=== PATIENT | female | born 1995 | race Caucasian/White ===

== ENCOUNTER 2021-10-22 15:37 | Emergency (ER) | payer MEDICAID, SELFPAY ==
[2021-10-22 15:37] VITALS: BP 133/95; PULSE 117; RESP 22; TEMP 36.6; O2SAT 98; BMI 41.4
--- NOTE | 2021-10-22 15:49 | EKG12_ITS ---
Test Reason : SOB Blood Pressure : / mmHG Vent. Rate : 113 BPM Atrial Rate : 113 BPM P-R Int : 136 ms QRS Dur : 080 ms QT Int : 318 ms P-R-T Axes : 054 056 017 degrees QTc Int : 436 ms Sinus tachycardia nonspecific T wave abnormality Confirmed by MERCED LONGO, RICARDO ([id number]), editor city SULEIMAN MADDOX ([id number]) on 10/25/2021 11:29:20 AM Referred By: ROBINSON Confirmed By:RICARDO BLACKWOOD MD
[2021-10-22] MEDS: Ipratropium/Albuterol Sulfate 3 ML AMPUL.NEB INHALATION (16:01)
[2021-10-22 16:02] VITALS: RESP 18
--- NOTE | 2021-10-22 16:03 | EDS_ITS ---
HPI History of Present Illness Chief Complaint: Shortness of Breath Informant: patient Onset/Context/Timing Onset: Days Context: Gradual Onset Current Severity: Mild Maximum Severity: Moderate Narrative Narrative: Patient presents with shortness of breath and chest pain x 2 days. Mild cough with sputum production noted. Patient believes she either pulled a muscle or has pneumonia. No fever or chills. No DVT or PE risk factors. [facility] Medical History Asthma Diabetes High cholesterol Home Medications prednisone 40 mg PO DAILY #6 tab 10/22/21 [Rx Last Taken Unknown] Allergy/AdvReac Type Severity Reaction Status Date / Time No Known Allergies Allergy Verified 10/22/21 15:41 Social History (Updated 10/22/21 @ 16:[address] Madalyn Calderon MD) Smoking Status: Current every day smoker tobacco type: cigarettes ROS ROS ED Constitutional Constitutional ED: Denies chills or fever(s) Eyes Eyes: Denies change in vision ENT ENT ED: Denies sore throat Cardiovascular Cardiovascular: Reports chest pain Respiratory/Chest Respiratory/Chest: Reports cough, dyspnea and sputum Gastrointestinal Gastrointestinal: Denies abdominal pain, nausea or vomiting Genitourinary Genitourinary ED: Denies dysuria Musculoskeletal Musculoskeletal: Reports back pain Integumentary Denies rash Neurologic Neurologic: Denies headache(s) or weakness Allergic/Immunologic Allergic/Immunologic ED: Denies urticaria EXAM Physical Exam Const Vital Signs: 10/22/21 15:37 10/22/21 16:02 10/22/21 16:22 Temperature 97.8 F Temperature Source Oral Pulse Rate 117 H Respiratory Rate 22 H 18 Respiratory Effort Short of Breath Respiratory Depth Normal Respiratory Pattern Tachypnea Blood Pressure 133/95 H Blood Pressure Mean 107 Pulse Ox 98 Oxygen Delivery Method Room Air Positive well nourished and well developed General Appearance ED: well developed HEENT Reports moist mucous membranes Eyes PERRL and EOMs intact bilaterally Neck no lymphadenopathy and supple Chest Wall inspection of chest normal and palpation of chest normal Resp normal respiratory effort Auscultation: diminished lung sounds Cardio regular rate and regular rhythm GI non-tender Palpation: soft Extremity normal to inspection Neuro oriented x3 and no sensory deficits noted Sensorium / Orientation: alert Motor Exam: strength 5/5 throughout Psych mental status grossly normal Skin no rashes or lesions noted MDM MDM MDM Narrative Medical decision making narrative: Patient given a DuoNeb treatment. Chest x- ray, EKG, lab work obtained. Lab Data Attestation: I reviewed the patient's lab results. Labs: Laboratory Results - last 24 hr 10/22/21 10/22/21 10/22/21 16:18 16:18 16:18 WBC 14.0 H RBC 5.17 Hgb 14.3 Hct 42.3 MCV 81.8 MCH 27.7 MCHC 33.8 RDW Std Deviation 43.0 RDW Coeff of Lalo 14.5 Plt Count 246 MPV 11.1 Immature Gran % (Auto) 0.500 Neut % (Auto) 69.3 Lymph % (Auto) 23.2 [place] % (Auto) 4.7 Eos % (Auto) 1.9 Baso % (Auto) 0.4 Absolute Neuts (auto) 9.7 H Absolute Lymphs (auto) 3.25 Nucleated RBC % 0 D-Dimer Quant (PE/DVT) < 0.27 L Sodium 136 Potassium 4.1 Chloride 106 Carbon Dioxide 23.0 Anion Gap 7 BUN 13 Creatinine 0.82 Estim Creat Clear Calc 85.25 Est GFR (MDRD) Af Amer 108 Est GFR (MDRD) Non-Af 89 BUN/Creatinine Ratio 15.9 Glucose 208 H Calcium 9.6 Troponin I High Sens < 3 L Serum , Qual 10/22/21 16:18 WBC RBC Hgb Hct MCV MCH MCHC RDW Std Deviation RDW Coeff of Lalo Plt Count MPV Immature Gran % (Auto) Neut % (Auto) Lymph % (Auto) [place] % (Auto) Eos % (Auto) Baso % (Auto) Absolute Neuts (auto) Absolute Lymphs (auto) Nucleated RBC % D-Dimer Quant (PE/DVT) Sodium Potassium Chloride Carbon Dioxide Anion Gap BUN Creatinine Estim Creat Clear Calc Est GFR (MDRD) Af Amer Est GFR (MDRD) Non-Af BUN/Creatinine Ratio Glucose Calcium Troponin I High Sens Serum , Qual NEGATIVE Radiography Chest X-Ray - ED: 2 View, Read by ED Physician, Normal, Heart, Lungs, Mediastinum and No Infiltrates Diagnostic Testing: Clinical Impression(s) from Imaging Studies Chest X-Ray 10/22/21 16:25 IMPRESSION: No acute radiographic abnormalities. Electronically Signed: Rolando Soria MD at 16:57 EDT , EKG Initial EKG: Attestation: I personally reviewed and interpreted this EKG as follows: Interpretation: Sinus Rhythm and Sinus Tachycardia (Sinus tach at 113. No acute ischemia.) Treatment and Re-Evaluation Narrative: On repeat evaluation patient does feel that her breathing is improved. Lab work reviewed with her and unremarkable. D-dimer is negative. Chest x-ray reveals no focal infiltrate per my interpretation as well as radiologist. I advised patient I believe she has a viral upper respiratory infection causing a slight asthma flare. [facility] She will be given a total of 4 days of prednisone. She was counseled on elevation of her blood sugar with steroids which will return to normal when she completes the course. She voices understanding and agreement. Discharge Plan Triage Chief Complaint: Shortness of Breath ED Provider: Madalyn Calderon Dx/Rx/DC Orders Clinical Impression: Viral URI, Asthma exacerbation Instructions: ED Asthma, Acute (Adult), ED URI, Viral, No Abx (Adult) Prescriptions: New prednisone 20 mg tablet 40 mg PO DAILY Qty: 6 RF: 0 Primary Care Provider: Angelica Hare NP Referrals: Angelica Hare NP, [employer] [facility]PRENTICE-[facility] [Primary Care Provider] - 1-2 Weeks Disposition Disposition: Home, Self Care
[2021-10-22 16:25] LABS: Absolute Lymphocyte Count 3.25 X10^3/uL (0.83-4.51); Absolute Neutrophil Count 9.7 X10^3/uL (2.0-7.7); Basophil# 0.06 X10^3/uL; Basophil% 0.4 % (0-1); Eosinophil# 0.27 X10^3/uL; Eosinophils% 1.9 % (0-5); Hematocrit 42.3 % (37-47); Hemoglobin 14.3 g/dL (12.0-15.0); Lymphocyte # 3.25 X10^3/ul (0.83-4.51); Lymphocyte % 23.2 % (19-41); Mean Corp Hgb Conc 33.8 g/dL (32-36); Mean Corpuscular Hgb 27.7 pg (27.0-32.0); Mean Corpuscular Volume 81.8 fL (81-99); Mean Platelet Vol. 11.1 fl (6.2-12.0); Monocyte# 0.66 X10^3/uL; Monocyte% 4.7 % (0-10); NRBC Flagged by Analyzer 0 % (0-5); Neutrophil # 9.68 X10^3/uL (2.7-7.7); Neutrophil % 69.3 % (47-70); Platelet Count 246 K/mm3 (150-450); RBC Distribution Width CV 14.5 % (11.6-14.6); Red Blood Count 5.17 M/mm3 (4.2-5.4)
--- NOTE | 2021-10-22 16:25 | RAD_ITS ---
INDICATION: sob EXAMINATION/TECHNIQUE: X-RAY - XR Chest 2 Views COMPARISON: None. FINDINGS: The lungs are clear. The cardiomediastinal silhouette is unremarkable. No pleural effusion or pneumothorax. No acute osseous abnormalities. RAD/Chest PA and Lateral IMPRESSION: No acute radiographic abnormalities. Electronically Signed: Rolando Soria MD at 16:57 EDT ,
[2021-10-22 16:37] LABS: Internal QC Validated? YES +Cl - CLEAR BKGD; Pregnancy, Serum, hCG Quali. NEGATIVE Negative
[2021-10-22 16:38] LABS: D-Dimer Quantitative (DVT/PE) < 0.27 FEU/ug/m (0.27-0.49)
[2021-10-22 16:46] LABS: Anion Gap 7 (5-15); BUN 13 mg/dL (7-18); BUN/Creat Ratio 15.9 RATIO (10-20); Calcium,Total 9.6 mg/dL (8.5-10.1); Chloride 106 mmol/L (98-107); Creatinine, Serum 0.82 mg/dL (0.55-1.02); EST Glomerular Filtration Rate 89 mL/min (>60); Est Glom Filt Rate - Afr Amer 108 mL/min (>60); Estimated Creatinine Clearance 85.25 ml/min; Glucose 208 mg/dL (74-106); Potassium 4.1 mmol/L (3.5-5.1); Sodium Level 136 mmol/L (136-145); Troponin-I HS < 3 pg/mL (3.0-54.0)
[2021-10-22] MEDS: predniSONE 20 MG Tablet 40 MG PO (17:11)
[2021-10-22 17:16] VITALS: BP 128/75; PULSE 67; RESP 15; O2SAT 97
== END 2021-10-22 17:17 | disposition home or self-care (01) ==
PROVIDERS: Emergency Provider Emergency Medicine; PCP Nurse Practitioner Family; Visit Provider Emergency Medicine
DX: J06.9 Acute upper respiratory infection, unspecified (principal); J45.901 Unspecified asthma with (acute) exacerbation; F17.210 Nicotine dependence, cigarettes, uncomplicated
CPT/HCPCS: 71046; 80048; 84484; 84703; 85025; 85379; 93005; 94640; 99284; A4216

== ENCOUNTER 2022-04-15 05:32 | Emergency (ER) | payer MEDICAID, SELFPAY ==
[2022-04-15 05:33] VITALS: BP 150/120; PULSE 115; RESP 12; TEMP 36.7; O2SAT 97; BMI 42.3
--- NOTE | 2022-04-15 05:41 | EKG12_ITS ---
Test Reason : CP Blood Pressure : / mmHG Vent. Rate : 097 BPM Atrial Rate : 097 BPM P-R Int : 124 ms QRS Dur : 080 ms QT Int : 334 ms P-R-T Axes : 014 053 039 degrees QTc Int : 424 ms Normal sinus rhythm Normal ECG Confirmed by DEEPA RAMÍREZ MD ([id number]), photographic editor EMILY LOCKE ([id number]) on 04/17/2022 12:59:49 PM Referred By: CRYSTAL Confirmed By:DEEPA RAMÍREZ MD
--- NOTE | 2022-04-15 06:30 | EDS_ITS ---
HPI History of Present Illness Chief Complaint: Chest Pain Narrative Narrative: 27-year-old female with history of tachycardia presenting with palpitations and the feeling of left-sided chest pain. Patient states that she had a work-up for chest pain and tachycardia in October at [facility] and this was normal. She followed up with her PCP regarding the tachycardia and is currently referred to cardiology for an echocardiogram, EKG. She has not worn a Holter monitor. She does not have any cardiac disease that she knows of. No history of DVT/PE. She states that she was just sitting playing a video game when this occurred. She denies any history of anxiety as well. She does not feel short of breath. She states that the symptoms only lasted a few minutes and then resolved. They have not returned. She just had a chest x-ray performed 2 days ago and she had a normal CBC and BMP as well. [facility] Medical History Asthma Diabetes High cholesterol Home Medications prednisone 20 mg tablet 40 mg PO DAILY #6 tabs 10/22/21 [Rx Last Taken Unknown] amoxicillin 875 mg-potassium clavulanate 125 mg tablet tab 04/15/22 [History Last Taken Unknown] clindamycin HCl 300 mg capsule mg 04/15/22 [History Last Taken Unknown] metformin 1,000 mg tablet mg 04/15/22 [History Last Taken Unknown] pioglitazone 30 mg tablet (Actos) 30 mg PO DAILY 04/15/22 [History Last Taken Unknown] Allergy/AdvReac Type Severity Reaction Status Date / Time No Known Allergies Allergy Verified 10/22/21 15:41 Social History Smoking Status: Current every day smoker tobacco type: cigarettes ROS ROS ED Constitutional Constitutional ED: Denies chills or fever(s) Eyes Eyes: Denies none or blurry vision Cardiovascular Cardiovascular: Reports as per HPI and racing heartbeat Respiratory/Chest Respiratory/Chest: Denies cough or dyspnea Gastrointestinal Gastrointestinal: Denies abdominal pain or constipation Genitourinary Genitourinary ED: Denies dysuria or hematuria Musculoskeletal Musculoskeletal: Denies arthralgias or back pain Integumentary Denies abscess or Abrasions Neurologic Neurologic: Denies headache(s) or paresthesias Psychiatric Psychiatric: Denies anxiety or depression EXAM Physical Exam Const Vital Signs: 04/15/22 05:33 04/15/22 06:34 Temperature 98.1 F Temperature Source Temporal Pulse Rate 115 H 94 Respiratory Rate 12 25 H Blood Pressure 150/120 H 131/80 H Blood Pressure Mean 130 97 Pulse Ox 97 96 Oxygen Delivery Method Room Air Room Air MDM MDM MDM Narrative Medical decision making narrative: This is a well-appearing 27-year-old female presenting with left-sided chest pain associated with palpitations which she has had ongoing for months. Her heart rate was initially 115. She is asymptomatic currently. I did look over the medical record and saw she had a cardiac work-up in October and had a negative D-dimer. She also had a chest x-ray and basic lab work done the other day which is all normal. She states she is currently referred to a solar electric practitioner for an echocardiogram and an EKG and to see why her heart has been going fast at times. She denies a history of SVT, A. fib, other cardiac dysrhythmias. She states t hat she has not worn a Holter monitor. She states she is an otherwise normal state of health before this occurred this morning and she feels fine currently. On examination her heart is regular rate and rhythm. Respiratory rate is normal. She is 96 to 97% on room air. Blood pressure 131/80. She is in no acute distress. We discussed at length her ongoing tachycardia issues and recent work-ups which were normal. I did offer to her to do blood work or imaging if she thought it this was something different that she experienced in the past and she states she does not think that she necessarily needs it and I do not believe that I will be of any diagnostic usefulness that she just had blood work done that was normal 2 days ago and a normal chest x-ray. She does not have any history of DVT/PE. She does not currently have any risk factors for DVT/PE. She had a negative D-dimer just a couple of months ago during similar episode. She has not had any illnesses. At this point through shared decision making we determined that we would not do blood work or imaging. I did obtain an EKG which was done prior to entering the room and on my interpretation this is a normal sinus rhythm with a ventricular 97 bpm without sign of ischemic change or dysrhythmia. Patient feels comfortable following up with her PCP and solar electric practitioner outpatient. Impression: 1. Chest pain 2. Tachycardia Lab Data Attestation: I reviewed the patient's lab results. Discharge Plan Triage Chief Complaint: Chest Pain ED Provider: Rigoberto Tang Dx/Rx/DC Orders Instructions: ED Chest Pain, Uncertain Cause Prescriptions: No Action prednisone 20 mg tablet 40 mg PO DAILY Qty: 6 0RF clindamycin HCl 300 mg capsule Label Comments: TAKE 1 CAPSULE BY MOUTH EVERY 8 HOURS FOR 10 DAYS metformin 1,000 mg tablet Label Comments: TAKE 1 TABLET BY MOUTH TWICE DAILY WITH MEALS amoxicillin-pot clavulanate 875-125 mg tablet Label Comments: TAKE 1 TABLET BY MOUTH EVERY 12 HOURS FOR 10 DAYS pioglitazone [Actos] 30 mg Tablet 30 mg PO DAILY Primary Care Provider: Angelica Hare NP Referrals: Angelica Hare NP, [facility] [Primary Care Provider] - Disposition Disposition: Home, Self Care Discharge Date/Time: 04/15/22 06:36
[2022-04-15 06:34] VITALS: BP 131/80; PULSE 94; RESP 25; O2SAT 96
== END 2022-04-15 06:36 | disposition home or self-care (01) ==
PROVIDERS: Emergency Provider Student in an Organized Health Care Education/Training Program; PCP Nurse Practitioner Family; Visit Provider Student in an Organized Health Care Education/Training Program
DX: R07.9 Chest pain, unspecified (principal); E11.9 Type 2 diabetes mellitus without complications; R00.0 Tachycardia, unspecified; F17.210 Nicotine dependence, cigarettes, uncomplicated; Z79.84 Long term (current) use of oral hypoglycemic drugs
CPT/HCPCS: 93005; 99283

== ENCOUNTER 2022-07-25 18:14 | Emergency (ER) | payer MEDICAID, SELFPAY ==
[2022-07-25 18:15] VITALS: BP 153/93; PULSE 104; RESP 18; TEMP 35.5; O2SAT 98; BMI 89.8
--- NOTE | 2022-07-25 21:32 | EX.ED.DYSGE1 ---
HPI History of Present Illness Chief Complaint: Ear Problem Narrative Narrative: Patient states she woke up today with a sore throat. No fevers, chills, cough, body aches. She states that she took 1 dose of Tylenol this morning and has not taken anything since. Now she states her right ear hurts. She states it is very painful and she is tearful. She denies any trauma [facility] Medical History Asthma Diabetes High cholesterol Home Medications prednisone 20 mg tablet 40 mg PO DAILY #6 tabs 10/22/21 [Rx Last Taken Unknown] amoxicillin 875 mg-potassium clavulanate 125 mg tablet tab 04/15/22 [History Last Taken Unknown] clindamycin HCl 300 mg capsule mg 04/15/22 [History Last Taken Unknown] metformin 1,000 mg tablet mg 04/15/22 [History Last Taken Unknown] pioglitazone 30 mg tablet (Actos) 30 mg PO DAILY 04/15/22 [History Last Taken Unknown] amoxicillin 875 mg-potassium clavulanate 125 mg tablet 1 tab PO BID #20 tabs 07/25/22 [Rx Last Taken Unknown] Allergy/AdvReac Type Severity Reaction Status Date / Time No Known Allergies Allergy Verified 07/25/22 18:15 Social History Smoking Status: Current every day smoker tobacco type: cigarettes ROS ROS ED Constitutional Constitutional ED: Denies chills, fever(s) or sweats Eyes Eyes: Denies blurry vision or change in vision ENT ENT ED: Reports ear pain and sore throat Cardiovascular Cardiovascular: Denies chest pain, palpitations or racing heartbeat Respiratory/Chest Respiratory/Chest: Denies cough, dyspnea or sputum Gastrointestinal Gastrointestinal: Denies abdominal pain, constipation, diarrhea, nausea or vomiting Genitourinary Genitourinary ED: Denies dysuria, hematuria or urinary frequency Musculoskeletal Musculoskeletal: Denies arthralgias, myalgias or neck pain Integumentary Denies abscess, Abrasions or rash Neurologic Neurologic: Denies headache(s), paresthesias or weakness Psychiatric Psychiatric: Denies anxiety, depression, suicidal ideation or suicidal thoughts Endocrine Endocrinology: Denies polydipsia or polyuria EXAM Physical Exam Const Vital Signs: 07/25/22 18:15 Temperature 96 F L Temperature Source Temporal Pulse Rate 104 H Respiratory Rate 18 Blood Pressure 153/93 H Blood Pressure Mean 113 Pulse Ox 98 Oxygen Delivery Method Room Air Positive well nourished General Appearance ED: NAD; Negative for pallor HEENT Reports external ears normal, moist mucous membranes and dry mucous membranes HEENT Narrative: Right TM is erythematous, bulging. External auditory canal is normal. Mouth ED: Yes dry mucous membranes Mouth: dry mucous membranes Cardio regular rate and regular rhythm GI normal to inspection, nondistended, normoactive bowel sounds Neuro oriented x3 and CN's II-XII intact bilaterally Sensorium / Orientation: alert Psych mental status grossly normal Skin no rashes or lesions noted General Skin Exam: Negative for jaundice or pallor MDM MDM MDM Narrative Medical decision making narrative: Patient with history of sore throat today which is now resolved now she is having right ear pain. Oropharynx appears normal. No exudates. No swelling. Examination is consistent with right otitis media. Patient was started on Augmentin. She is counseled to increase her pain medication. She is to take Tylenol and ibuprofen in alternating doses. To cover for pain. I do not believe she needs any other further work-up. Impression: 1. Sore throat 2. Right Lab Data Attestation: I reviewed the patient's lab results. Discharge Plan Triage Chief Complaint: Ear Problem ED Provider: Rigoberto Tang Dx/Rx/DC Orders Instructions: ED Otitis Media Antibiotic ... Prescriptions: New amoxicillin-pot clavulanate 875-125 mg tablet 1 tab PO BID Qty: 20 0RF No Action prednisone 20 mg tablet 40 mg PO DAILY Qty: 6 0RF clindamycin HCl 300 mg capsule Label Comments: TAKE 1 CAPSULE BY MOUTH EVERY 8 HOURS FOR 10 DAYS metformin 1,000 mg tablet Label Comments: TAKE 1 TABLET BY MOUTH TWICE DAILY WITH MEALS amoxicillin-pot clavulanate 875-125 mg tablet Label Comments: TAKE 1 TABLET BY MOUTH EVERY 12 HOURS FOR 10 DAYS pioglitazone [Actos] 30 mg Tablet 30 mg PO DAILY Primary Care Provider: Angelica Hare NP Referrals: Angelica Hare NP, [employer]ERCIAL T[employer] EXAMINER-C [Primary Care Provider] - Disposition Disposition: Home, Self Care
[2022-07-25] MEDS: Ibuprofen 600 MG Tablet PO (21:33)
[2022-07-25] MEDS: Amox/Clavulanate 875 MG Tablet PO (21:33)
== END 2022-07-25 21:36 | disposition home or self-care (01) ==
PROVIDERS: Emergency Provider Student in an Organized Health Care Education/Training Program; PCP Nurse Practitioner Family; Visit Provider Student in an Organized Health Care Education/Training Program
DX: J02.9 Acute pharyngitis, unspecified (principal); E11.9 Type 2 diabetes mellitus without complications; E78.00 Pure hypercholesterolemia, unspecified; F17.210 Nicotine dependence, cigarettes, uncomplicated; H92.01 Otalgia, right ear
CPT/HCPCS: 99283